=== PATIENT | male | born 1980 | race Caucasian/White ===

== ENCOUNTER 2022-08-08 16:10 | Inpatient (IN) | payer OTHER ==
[~2022-08-08] VITALS: Ht 182.9 cm; Wt 97.5 kg
[2022-08-08 16:47] LABS: BASOPHILS % (AUTO) 0.4 % (0.0-5.0); EOSINOPHILS % (AUTO) 0.2 % (0.0-8.0); LYMPHOCYTES % (AUTO) 5.2 % (21.0-51.0); MEAN CORPUSCULAR HEMOGLOBIN 28.9 pg (27.0-33.0); MEAN CORPUSCULAR HGB CONC 32.9 g/dL (32.0-36.0); MEAN CORPUSCULAR VOLUME 87.8 fL (79-99); MONOCYTES % (AUTO) 5.8 % (3.0-13.0); PLATELET COUNT (AUTO) 302 K/uL (130-400); RED BLOOD CELL COUNT(AUTO) 5.47 MIL/uL (4.50-6.20); RED CELL DISTRIBUTION WIDTH 12.6 % (11.0-15.5); WHITE BLOOD COUNT (AUTO) 13.9 K/uL (4.8-10.8)
[2022-08-08 17:05] LABS: ALBUMIN 4.2 g/dL (3.5-5.0); CREATININE 1.1 mg/dL (0.5-1.5); POTASSIUM 4.3 mmol/L (3.5-5.1); TOTAL PROTEIN, SERUM 8.1 g/dL (6.0-8.3)
[2022-08-08 19:12] LABS: APPEARANCE,URINE CLEAR (CLEAR); BILIRUBIN,URINE NEGATIVE (NEGATIVE); COLOR,URINE YELLOW (YELLOW); GLUCOSE, URINE (UA) NEGATIVE (NEGATIVE); KETONES,URINE 5 mg/dL (NEGATIVE); LEUKOCYTE ESTERASE ,URINE NEGATIVE Leu/uL (NEGATIVE); NITRATE,URINE NEGATIVE (NEGATIVE); OCCULT BLOOD,URINE NEGATIVE (NEGATIVE); PROTEIN,URINE 20 mg/dL (NEGATIVE); UROBILINOGEN,URINE 0.2 mg/dL (0.2-1.0)
[2022-08-08] MEDS ORDERED: LEVOFLOXACIN 750 MG/D5W 150ML BAG IVPB SCH (19:30)
[2022-08-08 19:33] LABS: BACTERIA,URINE RARE /HPF (None Seen); MUCUS,URINE MOD LPF (None Seen); SQUAMOUS EPITHELIAL CELL,UR RARE /HPF (0-2)
[2022-08-08] MEDS ORDERED: ACETAMINOPHEN 325 MG TAB PO PRN ×2 (20:30)
[2022-08-08] MEDS ORDERED: ONDANSETRON 4MG INJ IV PRN (20:30)
[2022-08-08] MEDS ORDERED: MORPHINE 2 MG SYG IV PRN (20:30)
[2022-08-08] MEDS: METRONIDAZOLE 500 MG TABLET PO SCH (21:00)
[2022-08-08] MEDS: 0.9%NACL 1000ML 1,000 ML IV SCH (21:34)
[2022-08-08] MEDS: FAMOTIDINE 20MG VIAL IV SCH (21:34)
[2022-08-08] MEDS: METRONIDAZOLE 500MG/100ML BAG 100 ML IVPB SCH (21:34)
[2022-08-09] VITALS (27 sets, daily range): BP systolic 92–152; BP diastolic 53–101
[2022-08-09] MEDS: 0.9%NACL 1000ML 1,000 ML IV SCH ×4 (04:14→20:14)
[2022-08-09] MEDS: METRONIDAZOLE 500MG/100ML BAG 100 ML IVPB SCH ×3 (04:58→20:14)
[2022-08-09 05:11] LABS: BASOPHILS % (AUTO) 0.4 % (0.0-5.0); EOSINOPHILS % (AUTO) 0.1 % (0.0-8.0); HEMATOCRIT 40.5 % (42-54); LYMPHOCYTES % (AUTO) 1.6 % (21.0-51.0); MEAN CORPUSCULAR HEMOGLOBIN 29.3 pg (27.0-33.0); MEAN CORPUSCULAR HGB CONC 33.1 g/dL (32.0-36.0); MEAN CORPUSCULAR VOLUME 88.6 fL (79-99); NEUTROPHILS % (AUTO) 95.1 % (40.0-77.0); PLATELET COUNT (AUTO) 228 K/uL (130-400); RED BLOOD CELL COUNT(AUTO) 4.57 MIL/uL (4.50-6.20); WHITE BLOOD COUNT (AUTO) 14.8 K/uL (4.8-10.8)
[2022-08-09 05:30] LABS: ALBUMIN 3.1 g/dL (3.5-5.0); CREATININE 1.5 mg/dL (0.5-1.5); POTASSIUM 4.1 mmol/L (3.5-5.1); TOTAL PROTEIN, SERUM 6.5 g/dL (6.0-8.3)
[2022-08-09 05:57] LABS: HEMOGLOBIN A1C 5.2 % (4.0-6.0)
[2022-08-09 06:50] LABS: ERYTHROCYTE SEDIMENTATION RATE 3 MM/HR (0-15)
[2022-08-09] MEDS: FAMOTIDINE 20MG VIAL IV SCH ×2 (08:35→20:15)
[2022-08-09] MEDS: METRONIDAZOLE 500 MG TABLET PO SCH ×2 (08:35→14:00)
[2022-08-09] MEDS: LEVOFLOXACIN 750 MG/D5W 150 ML 150 ML IV SCH (08:35)
[2022-08-09] MEDS ORDERED: BUPIVACAINE/PF 0.25% 30ML VIAL IJ ONE (08:38)
[2022-08-09] MEDS ORDERED: LACTATED RINGERS 1000ML 1,000 ML IV ONE (10:28)
[2022-08-09] MEDS: LIDOCAINE 1%-EPI 1:100,000 20 ML VIAL IJ SCH ×2 (11:00→12:30)
[2022-08-09] MEDS ORDERED: MIDAZOLAM HCL 1 MG/ML 2ML VIAL ONE (11:07)
[2022-08-09] MEDS ORDERED: LIDOCAINE PF 100MG/5ML (2%) SYRINGE 5ML ONE (11:07)
[2022-08-09] MEDS ORDERED: ROCURONIUM 10MG/1ML SYR 10 MG/ML ML ONE (11:08)
[2022-08-09] MEDS ORDERED: NEOSTIGMINE 5MG/5ML SYR IV ONE (11:08)
[2022-08-09] MEDS ORDERED: FENTANYL CITRATE PF 50 MCG/1 ML 2ML VIAL ONE (11:08)
[2022-08-09] MEDS ORDERED: PROPOFOL 10 MG/ML 20ML VIAL IV ONE (11:08)
[2022-08-09] MEDS ORDERED: GLYCOPYRROLATE 1 MG/5 ML SYRINGE ONE (11:08)
[2022-08-09] MEDS ORDERED: ONDANSETRON 4MG INJ ONE (12:14)
[2022-08-09] MEDS ORDERED: MEPERIDINE-PF 25 MG/ML SYG ONE ×2 (12:15→12:45)
[2022-08-09] MEDS ORDERED: HYDROMORPHONE 1 MG INJ IVP PRN (15:00)
[2022-08-09] MEDS: OXYCODONE/ACETAMIN 5/325MG TAB PO PRN (20:15)
[2022-08-10 00:08] VITALS: BP 114/68
[2022-08-10] MEDS: OXYCODONE/ACETAMIN 5/325MG TAB PO PRN (03:18)
[2022-08-10] MEDS: 0.9%NACL 1000ML 1,000 ML IV SCH ×2 (03:45→05:09)
[2022-08-10 03:46] VITALS: BP 110/67
[2022-08-10 04:12] LABS: BASOPHILS % (AUTO) 0.6 % (0.0-5.0); EOSINOPHILS % (AUTO) 1.6 % (0.0-8.0); HEMATOCRIT 37.4 % (42-54); LYMPHOCYTES % (AUTO) 8.6 % (21.0-51.0); MEAN CORPUSCULAR HEMOGLOBIN 29.1 pg (27.0-33.0); MEAN CORPUSCULAR HGB CONC 32.6 g/dL (32.0-36.0); MEAN CORPUSCULAR VOLUME 89.3 fL (79-99); MONOCYTES % (AUTO) 5.6 % (3.0-13.0); NEUTROPHILS % (AUTO) 82.8 % (40.0-77.0); PLATELET COUNT (AUTO) 159 K/uL (130-400); RED BLOOD CELL COUNT(AUTO) 4.19 MIL/uL (4.50-6.20); RED CELL DISTRIBUTION WIDTH 13.3 % (11.0-15.5); WHITE BLOOD COUNT (AUTO) 7.7 K/uL (4.8-10.8)
[2022-08-10 04:38] LABS: ALBUMIN 2.7 g/dL (3.5-5.0); CREATININE 1.2 mg/dL (0.5-1.5); POTASSIUM 3.9 mmol/L (3.5-5.1); TOTAL PROTEIN, SERUM 6.1 g/dL (6.0-8.3)
[2022-08-10] MEDS: METRONIDAZOLE 500MG/100ML BAG 100 ML IVPB SCH (05:09)
[2022-08-10 07:05] VITALS: BP 110/68
[2022-08-10] MEDS: FAMOTIDINE 20MG VIAL IV SCH (08:39)
[2022-08-10] MEDS: LEVOFLOXACIN 750 MG/D5W 150 ML 150 ML IV SCH (08:40)
== END 2022-08-10 10:40 | disposition home or self-care (01) | DRG 343 ==
LOC: EDH 16:10 → EDHIP 16:11 → 3AH 23:37
PROVIDERS: ADMIT Internal Medicine; ATTEND Internal Medicine
PROC: 0DTJ4ZZ Resection of Appendix, Percutaneous Endoscopic Approach (ICD-10-PCS; principal; 2022-08-09 11:10)
DX: K35.80 Unspecified acute appendicitis (principal); D18.03 Hemangioma of intra-abdominal structures; Z20.822 Contact with and (suspected) exposure to COVID-19; F17.290 Nicotine dependence, other tobacco product, uncomplicated
CPT/HCPCS: 36415; 74176; 76705; 80053; 81001; 83036; 83690; 84145; 85025; 85651; 87040; 87635; A4344; G0378; J1956; J2001; J2175; J2250; J2405; J2704; J2710; J3010; J3490; J7030; J7120